=== PATIENT | female | born 1930 | race Caucasian/White ===

== ENCOUNTER 2016-06-27 11:03 | Emergency (ER) | payer MEDICARE, BC ==
[2016-02-19 10:38] VITALS: BMI 30.9
[~2016-06-27 11:03] MED LIST: ALBUTEROL0.63 MG/3 INH; APAP325 MG; APAP325 MG PO; APRESOLINE25 MG PO; ATIVAN0.5 MG PO; ATROVENT 0.02%2.5 ML UPD; BAYER CHEWABLE81 MG PO; BENZONATATE200 MG PO; BRINTELLIX10 MG PO; BROVANA15 MCG/2 M INH; BYSTOLIC5 MG PO; CARDIZEM CD360 MG PO; CATAPRES0.1 MG PO; CENTRUM SILVER1 TA2 PO; COZAAR25 MG PO; COZAAR50 MG PO; DOXYCYCLINE HY100 M2 PO; FISH OIL 1,2001 CA1 PO; FLORANEX / LACT1 TAB PO; HUMALOG 30100 UNITS/ SC; HUMALOG MIX 75/23 ML SC; HYDRALAZINE HCL50 MG PO; HYDROCODON-ACE1 EAC6 PO; K-DUR20 MEQ PO; K-TAB10 MEQ PO; LANOXIN125 MCG PO; LANTUS INSULIN10 ML SC; LASIX20 MG PO; LASIX40 MG PO; LOTRISONE CREAM45 GM TOPICAL; MACROBID100 MG PO; MAG-OX 400 MG400 MG PO; MICRO-K10 MEQ PO; MUCINEX DM ER1 EAC1 PO; MUCINEX600 MG PO; NAMENDA5 MG PO; NOVOLOG MIX 70/10 ML SQ; NOVOLOG100 U/M1 SQ; NYSTATIN ORAL SU5 ML; OMNICEF300 MG PO; PERFOROMIS20 MCG/21 INH; PROMETHAZINE W473 M1 PO; PULMICORT0.5 MG/21 INH; PULMICORT0.5 MG/21 UPD; SLOW FE142 MG PO; STERAPRED 5MG 125 MG PO; ZEBETA10 MG PO; ZEBETA5 MG PO; ZITHROMAX250 MG PO; ZOFRAN4 MG PO; ZOLOFT100 MG PO; ZOLOFT50 MG PO
[2016-06-27 11:52] LABS: BASOPHILS 0.2 % (0.0-2.0); EOSINOPHILS 2.3 % (0-7); HEMATOCRIT 35.1 % (36.0-48.0); HEMOGLOBIN 11.1 g/dL (12-16); IMMATURE GRANULOCYTES 0.4 % (0-5); LYMPHOCYTES 13.1 % (15-50); MCH 31.4 pg (26.0-34.0); MCHC 31.6 g/dL (31.0-37.0); MCV 99.2 fL (80.0-100.0); MEAN PLATELET VOLUME 10.3 fL (7.4-10.4); MONOCYTES 5.7 % (2-11); NEUTROPHILS 78.3 % (40-80); PLATELET COUNT 268 10x3/uL (130-400); RBC 3.54 10x6/uL (4.00-5.40); RDW 14.7 % (11.5-14.5); WBC 11.3 10x3/uL (4.8-10.8)
[2016-06-27 12:08] LABS: ALBUMIN 3.4 g/dL (3.4-5.0); ALKALINE PHOSPHATASE 123 U/L (46-116); ALT (SGPT) 33 U/L (10-68); BILIRUBIN - TOTAL 0.49 mg/dL (0.2-1.3); CALC OSMOLALITY 287 mosm/kg (275-300); CALCIUM 9.1 mg/dL (8.5-10.1); CARBON DIOXIDE 28.3 mmol/L (21.0-32.0); CHLORIDE - SERUM 101 mmol/L (98-107); POTASSIUM - SERUM 3.8 mmol/L (3.5-5.1); PROTEIN - SERUM 6.7 g/dL (6.4-8.2); SODIUM 140 mmol/L (136-145); UREA NITROGEN 20 mg/dL (7-18); eGFR NON AFRICAN AMERICAN 56 mL/min (90-120)
[2016-06-27 12:09] LABS: GLUCOSE 213 mg/dL (74-106)
[2016-06-27 12:17] LABS: DIGOXIN 0.69 ng/mL (0.90-2.00); PRO BNP 2603 pg/mL (0-450)
[2016-06-27 12:18] LABS: TROPONIN-I < 0.017 ng/mL (0.000-0.060)
== END 2016-06-27 13:10 | disposition home or self-care (01) ==
LOC: D.ER 11:03
PROVIDERS: Emergency Medicine
DX: R60.9 Edema, unspecified (principal); E11.8 Type 2 diabetes mellitus with unspecified complications; Z79.4 Long term (current) use of insulin; F41.9 Anxiety disorder, unspecified; J44.9 Chronic obstructive pulmonary disease, unspecified; I10 Essential (primary) hypertension; I48.91 Unspecified atrial fibrillation

== ENCOUNTER → 2016-08-21 12:53 | Outpatient (CLI) | payer MEDICARE, BC ==
[2016-02-19 10:38] VITALS: BMI 30.9
[2016-08-21 13:17] LABS: BASOPHILS 0.2 % (0.0-2.0); EOSINOPHILS 2.5 % (0-7); HEMATOCRIT 36.9 % (36.0-48.0); HEMOGLOBIN 11.6 g/dL (12-16); IMMATURE GRANULOCYTES 0.2 % (0-5); LYMPHOCYTES 11.7 % (15-50); MCH 29.6 pg (26.0-34.0); MCHC 31.4 g/dL (31.0-37.0); MCV 94.1 fL (80.0-100.0); MEAN PLATELET VOLUME 10.6 fL (7.4-10.4); MONOCYTES 7.4 % (2-11); PLATELET COUNT 224 10x3/uL (130-400); RBC 3.92 10x6/uL (4.00-5.40); RDW 15.4 % (11.5-14.5); WBC 9.9 10x3/uL (4.8-10.8)
[2016-08-21 13:41] LABS: ALBUMIN 3.6 g/dL (3.4-5.0); ANION GAP 16.9 mmol/L (8-16); BILIRUBIN - TOTAL 0.39 mg/dL (0.2-1.3); CARBON DIOXIDE 27.5 mmol/L (21.0-32.0); CREATININE - SERUM 1.2 mg/dL (0.6-1.3); POTASSIUM - SERUM 4.4 mmol/L (3.5-5.1); PROTEIN - SERUM 6.9 g/dL (6.4-8.2); T4 THYROXINE 6.4 ug/dL (4.7-13.3); THYROID STIMULATING HORMONE 7.25 uIU/mL (0.36-3.74)
[2016-08-22 06:13] LABS: RAPID PLASMA REAGIN Non Reactive (Non Reactive)
[2016-08-22 08:16] LABS: FOLATE (FOLIC ACID) - SERUM 12.5 ng/mL (>3.0)
== END | disposition home or self-care (01) ==
LOC: D.MRI 12:53 → D.CN 13:00
PROVIDERS: Psychiatry & Neurology Neurology
DX: F03.90 Unspecified dementia, unspecified severity, without behavioral disturbance, psychotic disturbance, mood disturbance, and anxiety (principal)

== ENCOUNTER 2017-05-17 11:11 | Inpatient (IN) | payer MEDICARE ==
[~2017-05-17] VITALS: Ht 172.7 cm; Wt 99.8 kg
[2017-05-17 12:08] LABS: BASOPHILS 0.1 % (0-2); EOSINOPHILS 1.3 % (0-7); HEMATOCRIT 38.2 % (36.0-48.0); HEMOGLOBIN 11.5 g/dL (12-16); IMMATURE GRANULOCYTES 0.5 % (0-5); LYMPHOCYTES 5.1 % (15-50); MCH 28.5 pg (26.0-34.0); MCHC 30.1 g/dL (31.0-37.0); MCV 94.8 fL (80.0-100.0); MEAN PLATELET VOLUME 10.5 fL (7.4-10.4); MONOCYTES 6.4 % (2-11); NEUTROPHILS 86.6 % (40-80); RBC 4.03 10x6/uL (4.00-5.40); RDW 16.4 % (11.5-14.5); WBC 14.9 10x3/uL (4.8-10.8)
[2017-05-17 12:11] LABS: PLATELET COUNT 280 10x3/uL (130-400)
[2017-05-17 12:16] LABS: INR 1.05 (0.85-1.17); PROTIME 13.3 SECONDS (11.6-15.0)
[2017-05-17 12:23] LABS: ALBUMIN 3.2 g/dL (3.4-5.0); ALKALINE PHOSPHATASE 138 U/L (46-116); ALT (SGPT) 23 U/L (10-68); CALC OSMOLALITY 287 mosm/kg (275-300); CALCIUM 8.9 mg/dL (8.5-10.1); CARBON DIOXIDE 30.6 mmol/L (21.0-32.0); CHLORIDE - SERUM 100 mmol/L (98-107); CREATININE - SERUM 1.2 mg/dL (0.6-1.3); GLUCOSE 261 mg/dL (74-106); POTASSIUM - SERUM 5.1 mmol/L (3.5-5.1); PROTEIN - SERUM 6.5 g/dL (6.4-8.2); SODIUM 137 mmol/L (136-145); UREA NITROGEN 26 mg/dL (7-18); eGFR NON AFRICAN AMERICAN 45 mL/min (90-120)
[2017-05-17 12:30] LABS: CREATINE KINASE 47 UL (21-215); MAGNESIUM - SERUM 2.2 mg/dL (1.8-2.4); PRO BNP 1973 pg/mL (0-450)
[2017-05-17 12:32] LABS: TROPONIN-I < 0.017 ng/mL (0.000-0.060)
[2017-05-17 12:57] LABS: APPEARANCE HAZY (CLEAR); BILIRUBIN NEGATIVE (NEGATIVE); COLOR YELLOW (YELLOW); GLUCOSE NEGATIVE (NEGATIVE); KETONE NEGATIVE (NEGATIVE); NITRITE NEGATIVE (NEGATIVE); PROTEIN TRACE mg/dL (NEGATIVE); UROBILINOGEN NORMAL (NORMAL)
[2017-05-17 13:04] LABS: BACTERIA MODERATE /hpf (NONE SEEN); MUCUS <1+ /lpf (NONE SEEN)
[2017-05-17 13:05] LABS: AMORPHOUS SEDIMENT <1+ /lpf (NONE SEEN)
[2017-05-17] MEDS ORDERED: LYRICA75 MG PO (15:51)
[2017-05-17 16:29] VITALS: BP 135/66
[2017-05-17 17:35] VITALS: BP 135/66; BMI 33.5
[2017-05-17 23:00] VITALS: BP 176/76
[2017-05-18 02:55] LABS: BASOPHILS 0.2 % (0-2); EOSINOPHILS 0.4 % (0-7); HEMATOCRIT 35.7 % (36.0-48.0); HEMOGLOBIN 10.8 g/dL (12-16); IMMATURE GRANULOCYTES 0.6 % (0-5); LYMPHOCYTES 8.5 % (15-50); MCH 28.1 pg (26.0-34.0); MCHC 30.3 g/dL (31.0-37.0); MEAN PLATELET VOLUME 9.9 fL (7.4-10.4); NEUTROPHILS 81.3 % (40-80); PLATELET COUNT 248 10x3/uL (130-400); RBC 3.85 10x6/uL (4.00-5.40); RDW 16.4 % (11.5-14.5); WBC 10.4 10x3/uL (4.8-10.8)
[2017-05-18 02:56] LABS: MCV 92.7 fL (80.0-100.0)
[2017-05-18 03:04] LABS: ALBUMIN 2.8 g/dL (3.4-5.0); ANION GAP 11.5 mmol/L (8-16); BILIRUBIN - TOTAL 0.4 mg/dL (0.2-1.3); CALCIUM 8.4 mg/dL (8.5-10.1); CARBON DIOXIDE 28.1 mmol/L (21.0-32.0); POTASSIUM - SERUM 4.6 mmol/L (3.5-5.1); PROTEIN - SERUM 5.9 g/dL (6.4-8.2)
[2017-05-18 03:12] LABS: CREATININE - SERUM 0.8 mg/dL (0.6-1.3)
[2017-05-18 05:00] VITALS: BP 145/63
[2017-05-18 06:54] LABS: ANION GAP 9.4 mmol/L (8-16); CALCIUM 8.8 mg/dL (8.5-10.1); CARBON DIOXIDE 29.3 mmol/L (21.0-32.0); MAGNESIUM - SERUM 2.1 mg/dL (1.8-2.4); POTASSIUM - SERUM 4.7 mmol/L (3.5-5.1)
[2017-05-18 11:54] VITALS: BP 146/64
[2017-05-18 13:37] VITALS: Ht 172.7 cm; Wt 99.8 kg
[2017-05-18 15:58] VITALS: BP 158/73
[2017-05-18 20:00] VITALS: BP 178/70
[2017-05-19] VITALS: BP 141/64
[2017-05-19 04:00] VITALS: BP 147/76
[2017-05-19 05:13] LABS: BASOPHILS 0.2 % (0-2); EOSINOPHILS 0 % (0-7); HEMATOCRIT 31.9 % (36.0-48.0); HEMOGLOBIN 9.9 g/dL (12-16); IMMATURE GRANULOCYTES 0.5 % (0-5); MCH 28.1 pg (26.0-34.0); MCV 90.6 fL (80.0-100.0); MEAN PLATELET VOLUME 10.6 fL (7.4-10.4); MONOCYTES 14.1 % (2-11); NEUTROPHILS 71.2 % (40-80); PLATELET COUNT 214 10x3/uL (130-400); RBC 3.52 10x6/uL (4.00-5.40); RDW 16.2 % (11.5-14.5); WBC 6.1 10x3/uL (4.8-10.8)
[2017-05-19 05:29] LABS: ALBUMIN 2.7 g/dL (3.4-5.0); ANION GAP 9.9 mmol/L (8-16); BILIRUBIN - TOTAL 0.18 mg/dL (0.2-1.3); CALCIUM 8.5 mg/dL (8.5-10.1); CARBON DIOXIDE 31.1 mmol/L (21.0-32.0); CREATININE - SERUM 1.1 mg/dL (0.6-1.3); PROTEIN - SERUM 5.6 g/dL (6.4-8.2)
[2017-05-19] MEDS ORDERED: LANTUS INSULIN10 ML SC (09:13)
[2017-05-19] MEDS ORDERED: NYSTATIN-TRIAMC15 GM TOPICAL (09:15)
[2017-05-19] MEDS ORDERED: SEROQUEL100 MG PO (09:16)
[2017-05-19 09:33] VITALS: BP 116/55
[2017-05-19 13:29] VITALS: BP 120/60
[2017-05-19 16:30] VITALS: BP 128/64
[2017-05-19 20:00] VITALS: BP 140/67
[2017-05-20] VITALS (7 sets, daily range): BP systolic 114–162; BP diastolic 47–81
[2017-05-20 05:03] LABS: BASOPHILS 0 % (0-2); EOSINOPHILS 0 % (0-7); HEMATOCRIT 33.6 % (36.0-48.0); HEMOGLOBIN 10.2 g/dL (12-16); IMMATURE GRANULOCYTES 0.3 % (0-5); LYMPHOCYTES 9.2 % (15-50); MCH 27.7 pg (26.0-34.0); MCHC 30.4 g/dL (31.0-37.0); MCV 91.3 fL (80.0-100.0); MEAN PLATELET VOLUME 10.7 fL (7.4-10.4); MONOCYTES 7.2 % (2-11); NEUTROPHILS 83.3 % (40-80); PLATELET COUNT 217 10x3/uL (130-400); RBC 3.68 10x6/uL (4.00-5.40); RDW 16.2 % (11.5-14.5); WBC 6.7 10x3/uL (4.8-10.8)
[2017-05-20 05:36] LABS: ALBUMIN 2.9 g/dL (3.4-5.0); ANION GAP 13.1 mmol/L (8-16); BILIRUBIN - TOTAL 0.17 mg/dL (0.2-1.3); CALCIUM 8.6 mg/dL (8.5-10.1); CARBON DIOXIDE 28.9 mmol/L (21.0-32.0); CREATININE - SERUM 1.1 mg/dL (0.6-1.3); PHOSPHOROUS 3.7 mg/dL (2.5-4.9); PROTEIN - SERUM 5.5 g/dL (6.4-8.2)
[2017-05-21 04:15] VITALS: BP 104/50
[2017-05-21 04:28] LABS: BASOPHILS 0 % (0-2); EOSINOPHILS 0 % (0-7); HEMATOCRIT 33.4 % (36.0-48.0); HEMOGLOBIN 10.2 g/dL (12-16); IMMATURE GRANULOCYTES 0.3 % (0-5); LYMPHOCYTES 6.2 % (15-50); MCH 27.7 pg (26.0-34.0); MCHC 30.5 g/dL (31.0-37.0); MCV 90.8 fL (80.0-100.0); MEAN PLATELET VOLUME 10.6 fL (7.4-10.4); NEUTROPHILS 86.5 % (40-80); PLATELET COUNT 226 10x3/uL (130-400); RBC 3.68 10x6/uL (4.00-5.40); RDW 15.8 % (11.5-14.5); WBC 7.7 10x3/uL (4.8-10.8)
[2017-05-21 04:50] LABS: ALBUMIN 2.6 g/dL (3.4-5.0); ANION GAP 8.9 mmol/L (8-16); BILIRUBIN - TOTAL 0.18 mg/dL (0.2-1.3); CALCIUM 8.6 mg/dL (8.5-10.1); CARBON DIOXIDE 33.1 mmol/L (21.0-32.0); CREATININE - SERUM 1.1 mg/dL (0.6-1.3); PROTEIN - SERUM 5.5 g/dL (6.4-8.2)
[2017-05-21 08:49] VITALS: BP 152/71
[2017-05-21 12:56] VITALS: BP 146/62
[2017-05-21] MEDS ORDERED: CIPRO500 MG PO (15:06)
[2017-05-21] MEDS ORDERED: MEDROL DOSE PACK4 MG PO (15:06)
== END 2017-05-21 15:53 | disposition home health service (06) | DRG 177 ==
LOC: D.ER 11:11 → D.MS 14:08
PROVIDERS: Internal Medicine Pulmonary Disease; Nurse Practitioner Family; ADMIT Family Medicine
DX: J11.08 Influenza due to unidentified influenza virus with specified pneumonia (principal); J96.21 Acute and chronic respiratory failure with hypoxia; J15.6 Pneumonia due to other Gram-negative bacteria; G93.41 Metabolic encephalopathy; J44.1 Chronic obstructive pulmonary disease with (acute) exacerbation; N39.0 Urinary tract infection, site not specified; J13 Pneumonia due to Streptococcus pneumoniae; Z87.891 Personal history of nicotine dependence; F03.90 Unspecified dementia, unspecified severity, without behavioral disturbance, psychotic disturbance, mood disturbance, and anxiety; E11.9 Type 2 diabetes mellitus without complications; Z79.4 Long term (current) use of insulin; I48.91 Unspecified atrial fibrillation; I27.20 Pulmonary hypertension, unspecified; G47.33 Obstructive sleep apnea (adult) (pediatric); I08.1 Rheumatic disorders of both mitral and tricuspid valves

== ENCOUNTER → 2017-10-05 12:40 | Outpatient (CLI) | payer MEDICARE ==
[2017-05-18 13:37] VITALS: BMI 33.4
[~2017-10-05 12:40] MED LIST changes: +CIPRO500 MG PO; +LYRICA75 MG PO; +MEDROL DOSE PACK4 MG PO; +NYSTATIN-TRIAMC15 GM TOPICAL; +SEROQUEL100 MG PO
[2017-10-05 13:32] LABS: ANION GAP 13.4 mmol/L (8-16); CALCIUM 9.7 mg/dL (8.5-10.1); CARBON DIOXIDE 31.3 mmol/L (21.0-32.0); CREATININE - SERUM 1.2 mg/dL (0.6-1.3); POTASSIUM - SERUM 3.7 mmol/L (3.5-5.1)
== END | disposition home or self-care (01) ==
LOC: D.LABREF 12:40
PROVIDERS: Family Medicine
DX: I50.9 Heart failure, unspecified (principal)

== ENCOUNTER → 2019-03-28 15:01 | Outpatient (CLI) | payer MEDICARE ==
[2017-05-18 13:37] VITALS: BMI 33.4
[2019-03-28 16:07] LABS: BASOPHILS 0.2 % (0-2); EOSINOPHILS 3.3 % (0-7); HEMATOCRIT 31.7 % (36.0-48.0); HEMOGLOBIN 9.1 g/dL (12-16); IMMATURE GRANULOCYTES 0.4 % (0-5); LYMPHOCYTES 10.5 % (15-50); MCH 23.3 pg (26.0-34.0); MCHC 28.7 g/dL (31.0-37.0); MCV 81.1 fL (80.0-100.0); MEAN PLATELET VOLUME 10.3 fL (7.4-10.4); MONOCYTES 8.8 % (2-11); NEUTROPHILS 76.8 % (40-80); RBC 3.91 10x6/uL (4.00-5.40); WBC 9.2 10x3/uL (4.8-10.8)
[2019-03-28 16:46] LABS: PLATELET COUNT 383 10x3/uL (130-400)
[2019-03-28 16:50] LABS: ALBUMIN 2.5 g/dL (3.4-5.0); ANION GAP 6.1 mmol/L (8-16); BILIRUBIN - TOTAL 0.19 mg/dL (0.2-1.3); CALCIUM 7.9 mg/dL (8.5-10.1); CARBON DIOXIDE 35.7 mmol/L (21.0-32.0); POTASSIUM - SERUM 3.8 mmol/L (3.5-5.1); PROTEIN - SERUM 5.4 g/dL (6.4-8.2)
[2019-03-28 17:08] LABS: % SATURATION 6 % (15-55); IRON 23 ug/dl (35-150); TOTAL IRON BIND CAPACITY 347 ug/dl (260-445); UNSAT IRON BIND CAPACITY 324 ug/dl (150-375)
== END | disposition home or self-care (01) ==
LOC: D.LABREF 15:01
PROVIDERS: ATTEND Family Medicine
DX: E11.9 Type 2 diabetes mellitus without complications (principal); D64.9 Anemia, unspecified; Z79.899 Other long term (current) drug therapy